=== PATIENT | female | born 1950 | race Caucasian/White ===

== ENCOUNTER 2018-04-27 09:38 | Inpatient (IN) ==
[2018-04-27] MEDS ORDERED: HYDROmorphone 2 MG/1 ML VIAL IV STA (10:31)
[2018-04-27] MEDS ORDERED: ONDANSETRON 4 MG/2 ML VIAL IV STA (10:31)
[2018-04-27 12:18] LABS: Alanine Aminotransferase 24 U/L (13-56); Albumin 3.7 G/DL (3.4-5.0); Alkaline Phosphatase 53 U/L (45-117); Aspartate Amino Transferase 22 U/L (0-37); Blood Urea Nitrogen 15 MG/DL (7-18); Calcium 8.7 MG/DL (8.5-10.1); Glucose 153 MG/DL (74-106); Osmolality,Calculated 267.5 MOS/KG (273-304); Potassium 3.9 MMOL/L (3.5-5.1); Sodium 132 MMOL/L (136-145); Total Protein 7.2 G/DL (6.4-8.3)
[2018-04-27 12:28] LABS: Basophils % 0.2 % (0.0-0.8); Hematocrit 38.9 VOL% (35.7-47.0); Hemoglobin 12.9 GM/DL (12.0-16.0); Immature Granulocytes % 0.6 %; Immature Granulocytes Absolute 0.06 #; Lymphocytes % 9.3 % (21.3-54.2); Mean Corpuscular HGB Conc 33.2 GM/DL (32-36); Mean Corpuscular Hemoglobin 31 PG (27-34); Mean Corpuscular Volume 93.5 FL (87-102); Monocytes # 0.6 10*3/uL (0.11-0.8); Monocytes % 5.4 % (1.7-12.7); Neutrophils # 8.7 10*3/uL (1.4-7.4); Neutrophils % 84.5 % (38.7-73.9); Platelet Count 240 T/CUMM (130-400); Red Blood Count 4.16 MC/CUMM (3.8-5.5); Red Cell Distribution Width 14.4 % (9.3-17.3); White Blood Count 10.2 T/CUMM (4-12)
[2018-04-27 12:36] LABS: Apearance,Urine CLEAR (Clear); Bilirubin,Urine Negative (Negative); Blood, Urine Moderate mg/dL (Negative); Glucose,Urine (UA) 50 mg/dL (Negative); Ketones,Urine Negative (Negative); Nitrite,Urine Negative (Negative); Protein,Urine Negative; RBC,Urine 2 /HPF (0-4); Squamous Epithelial Cell,Urine Occasional /HPF (0-10); Urine Color Straw (Yellow); Urine Specific Gravity 1.008 (1.001-1.035); Urine Urobilinogen < 2.0 EU/DL (0.2-1.0); WBC,Urine <1 /HPF (0-6)
[2018-04-27] MEDS ORDERED: SODIUM CHLORIDE 0.9% 1,000 ML IV STA (13:59)
[2018-04-27] MEDS ORDERED: LEVOFLOXACIN INJ 500 MG in PREMIX 1 EACH IV STA (14:13)
[2018-04-27] MEDS: SODIUM CHLORIDE 0.9% 1,000 ML IV SCH (15:42)
[2018-04-27] MEDS: HYDROmorphone 2 MG/1 ML VIAL IV PRN (18:29)
[2018-04-27] MEDS ORDERED: DICLOFENAC 1% GEL 100 GM TUBE TOP PRN (18:44)
[2018-04-27] MEDS: ONDANSETRON 4 MG/2 ML VIAL IV PRN (19:22)
[2018-04-27] MEDS: ENOXAPARIN 40 MG/0.4 ML SYRINGE SUBCUT SCH (22:21)
[2018-04-27] MEDS: valACYclovir 500 MG TABLET PO SCH (22:22)
[2018-04-27] MEDS: METOPROLOL TARTRATE 50 MG TABLET PO SCH (22:22)
[2018-04-27] MEDS: DOCUSATE SODIUM 100 MG CAPSULE PO SCH (22:22)
[2018-04-28] MEDS: SODIUM CHLORIDE 0.9% 1,000 ML IV SCH ×3 (00:25→15:34)
[2018-04-28] MEDS: HYDROmorphone 2 MG/1 ML VIAL IV PRN ×4 (00:25→15:35)
[2018-04-28] MEDS: ONDANSETRON 4 MG/2 ML VIAL IV PRN ×4 (00:27→15:34)
[2018-04-28 04:04] LABS: Basophils % 0.4 % (0.0-0.8); Hemoglobin 11.4 GM/DL (12.0-16.0); Immature Granulocytes % 0.4 %; Immature Granulocytes Absolute 0.03 #; Lymphocytes # 1.7 10*3/uL (1.4-4.0); Lymphocytes % 21.4 % (21.3-54.2); Mean Corpuscular HGB Conc 33.5 GM/DL (32-36); Mean Corpuscular Hemoglobin 31 PG (27-34); Mean Corpuscular Volume 92.6 FL (87-102); Mean Platelet Volume 9.1 FL (9.6-12.0); Monocytes # 0.8 10*3/uL (0.11-0.8); Monocytes % 10.6 % (1.7-12.7); Neutrophils # 5.3 10*3/uL (1.4-7.4); Neutrophils % 67.2 % (38.7-73.9); Platelet Count 220 T/CUMM (130-400); Red Blood Count 3.67 MC/CUMM (3.8-5.5); Red Cell Distribution Width 14.6 % (9.3-17.3); White Blood Count 7.9 T/CUMM (4-12)
[2018-04-28 04:11] LABS: Calcium 7.6 MG/DL (8.5-10.1); Osmolality,Calculated 265.4 MOS/KG (273-304); Potassium 3.4 MMOL/L (3.5-5.1)
[2018-04-28] MEDS ORDERED: predniSONE 10 MG TABLET PO SCH (09:00)
[2018-04-28] MEDS ORDERED: HYDROXYCHLOROQUINE 200 MG TABLET PO SCH (09:00)
[2018-04-28] MEDS: LISINOPRIL/HCTZ 20-12.5 MG TABLET PO SCH (11:35)
[2018-04-28] MEDS: valACYclovir 500 MG TABLET PO SCH ×2 (11:35→21:01)
[2018-04-28] MEDS: DOCUSATE SODIUM 100 MG CAPSULE PO SCH ×2 (11:36→21:02)
[2018-04-28] MEDS: METOPROLOL TARTRATE 50 MG TABLET PO SCH ×2 (11:36→21:01)
[2018-04-28] MEDS: PANTOPRAZOLE 40 MG VIAL IV SCH (11:37)
[2018-04-28] MEDS: POTASSIUM CHLORIDE 20 MEQ TABLET PO SCH (12:27)
[2018-04-28] MEDS: LEVOFLOXACIN INJ 500 MG in PREMIX 1 EACH IV SCH (15:33)
[2018-04-28] MEDS: ENOXAPARIN 40 MG/0.4 ML SYRINGE SUBCUT SCH (21:01)
[2018-04-28] MEDS: PREGABALIN 75 MG CAPSULE PO SCH (21:02)
[2018-04-28] MEDS: ACETAMINOPHEN 325 MG TABLET PO PRN (21:15)
[2018-04-28] MEDS: traMADol 50 MG TABLET PO PRN (21:16)
[2018-04-29] MEDS: SODIUM CHLORIDE 0.9% 1,000 ML IV SCH ×2 (01:35→07:30)
[2018-04-29] MEDS: HYDROmorphone 2 MG/1 ML VIAL IV PRN ×5 (01:35→22:34)
[2018-04-29] MEDS: ONDANSETRON 4 MG/2 ML VIAL IV PRN ×5 (01:36→22:34)
[2018-04-29] MEDS: HYDROXYCHLOROQUINE 200 MG TABLET PO SCH (06:50)
[2018-04-29] MEDS: predniSONE 10 MG TABLET PO SCH (06:50)
[2018-04-29] MEDS: ACETAMINOPHEN 325 MG TABLET PO PRN (06:54)
[2018-04-29] MEDS: DOCUSATE SODIUM 100 MG CAPSULE PO SCH ×2 (09:13→21:13)
[2018-04-29] MEDS: valACYclovir 500 MG TABLET PO SCH ×2 (09:13→21:18)
[2018-04-29] MEDS: LISINOPRIL/HCTZ 20-12.5 MG TABLET PO SCH (09:13)
[2018-04-29] MEDS: PREGABALIN 75 MG CAPSULE PO SCH ×2 (09:13→21:11)
[2018-04-29] MEDS: POTASSIUM CHLORIDE 20 MEQ TABLET PO SCH (09:14)
[2018-04-29] MEDS: METOPROLOL TARTRATE 50 MG TABLET PO SCH ×2 (09:14→21:10)
[2018-04-29] MEDS: PANTOPRAZOLE 40 MG VIAL IV SCH (09:14)
[2018-04-29] MEDS: LEVOFLOXACIN INJ 500 MG in PREMIX 1 EACH IV SCH (14:08)
[2018-04-29] MEDS: traMADol 50 MG TABLET PO PRN (16:52)
[2018-04-29] MEDS: ENOXAPARIN 40 MG/0.4 ML SYRINGE SUBCUT SCH (21:11)
[2018-04-30] MEDS: ONDANSETRON 4 MG/2 ML VIAL IV PRN (04:57)
[2018-04-30] MEDS: HYDROmorphone 2 MG/1 ML VIAL IV PRN ×4 (04:57→21:36)
[2018-04-30] MEDS: predniSONE 10 MG TABLET PO SCH (05:02)
[2018-04-30] MEDS: HYDROXYCHLOROQUINE 200 MG TABLET PO SCH (05:02)
[2018-04-30] MEDS: PANTOPRAZOLE 40 MG VIAL IV SCH (09:35)
[2018-04-30] MEDS: LISINOPRIL/HCTZ 20-12.5 MG TABLET PO SCH (09:35)
[2018-04-30] MEDS: METOPROLOL TARTRATE 50 MG TABLET PO SCH ×2 (09:35→21:28)
[2018-04-30] MEDS: DOCUSATE SODIUM 100 MG CAPSULE PO SCH ×2 (09:35→21:28)
[2018-04-30] MEDS: PREGABALIN 75 MG CAPSULE PO SCH ×2 (09:36→21:35)
[2018-04-30] MEDS: POTASSIUM CHLORIDE 20 MEQ TABLET PO SCH (09:36)
[2018-04-30] MEDS: valACYclovir 500 MG TABLET PO SCH ×2 (09:36→21:28)
[2018-04-30] MEDS ORDERED: LORazepam 2 MG/1 ML VIAL IV ONE (14:35)
[2018-04-30] MEDS: LEVOFLOXACIN INJ 500 MG in PREMIX 1 EACH IV SCH (17:21)
[2018-04-30] MEDS: ENOXAPARIN 40 MG/0.4 ML SYRINGE SUBCUT SCH (21:29)
[2018-05-01] MEDS: HYDROmorphone 2 MG/1 ML VIAL IV PRN ×2 (01:25→06:19)
[2018-05-01] MEDS: HYDROXYCHLOROQUINE 200 MG TABLET PO SCH (06:18)
[2018-05-01] MEDS: predniSONE 10 MG TABLET PO SCH (06:18)
[2018-05-01] MEDS ORDERED: FAMOTIDINE 20 MG TABLET PO ONE (09:29)
[2018-05-01] MEDS ORDERED: BETAMETH SODIUM PHOS/ACETATE 30 MG/5 ML VIAL ONE ×2 (10:22→11:36)
[2018-05-01] MEDS: PANTOPRAZOLE 40 MG VIAL IV SCH (11:15)
[2018-05-01] MEDS ORDERED: PROPOFOL 200 MG/20 ML VIAL IV ONE (13:01)
[2018-05-01] MEDS ORDERED: MIDAZOLAM 2 MG/2 ML VIAL ONE (13:02)
[2018-05-01] MEDS ORDERED: fentaNYL 100 MCG/2 ML VIAL ONE (13:02)
[2018-05-01] MEDS: LISINOPRIL/HCTZ 20-12.5 MG TABLET PO SCH (13:20)
[2018-05-01] MEDS: PREGABALIN 75 MG CAPSULE PO SCH ×2 (13:20→20:43)
[2018-05-01] MEDS: DOCUSATE SODIUM 100 MG CAPSULE PO SCH ×2 (13:20→20:43)
[2018-05-01] MEDS: METOPROLOL TARTRATE 50 MG TABLET PO SCH ×2 (13:20→20:43)
[2018-05-01] MEDS: POTASSIUM CHLORIDE 20 MEQ TABLET PO SCH (13:20)
[2018-05-01] MEDS: valACYclovir 500 MG TABLET PO SCH ×2 (13:21→20:43)
[2018-05-01] MEDS: LEVOFLOXACIN INJ 500 MG in PREMIX 1 EACH IV SCH (15:14)
[2018-05-01] MEDS: HYDROmorphone 2 MG/1 ML VIAL IV SCH ×2 (17:45→23:50)
[2018-05-01] MEDS: ENOXAPARIN 40 MG/0.4 ML SYRINGE SUBCUT SCH (20:44)
[2018-05-02] MEDS: predniSONE 10 MG TABLET PO SCH (06:06)
[2018-05-02] MEDS: HYDROXYCHLOROQUINE 200 MG TABLET PO SCH (06:06)
[2018-05-02] MEDS: HYDROmorphone 2 MG/1 ML VIAL IV SCH (06:08)
[2018-05-02 08:06] VITALS: BP 173/70
[2018-05-02] MEDS: valACYclovir 500 MG TABLET PO SCH (10:13)
[2018-05-02] MEDS: PREGABALIN 75 MG CAPSULE PO SCH (10:13)
[2018-05-02] MEDS: LISINOPRIL/HCTZ 20-12.5 MG TABLET PO SCH (10:13)
[2018-05-02] MEDS: METOPROLOL TARTRATE 50 MG TABLET PO SCH (10:14)
[2018-05-02] MEDS: DOCUSATE SODIUM 100 MG CAPSULE PO SCH (10:14)
[2018-05-02] MEDS: POTASSIUM CHLORIDE 20 MEQ TABLET PO SCH (10:14)
[2018-05-02] MEDS: PANTOPRAZOLE 40 MG VIAL IV SCH (10:14)
== END 2018-05-02 10:50 | disposition home or self-care (01) | DRG 552 ==
LOC: N.EDINP 09:38 → N.ED 09:38 → N.TELEN 15:28 → N.4E 04-29 11:51
PROVIDERS: ADMIT Family Medicine; ATTEND Family Medicine